=== PATIENT | female | born 1990 | race Asian ===

== ENCOUNTER → 2024-05-01 08:15 | Outpatient (REF) | payer BC, SELFPAY ==
[2024-05-01 09:51] LABS: % Basophils 0.4 % (0-2); % Eosinophils 2.7 % (0-6); % Immature Granulocytes 0.2 % (0-0.5); % Lymphocytes 32.3 % (20.5-51.1); % Monocytes 4.6 % (1.7-9.3); % Neutrophils 59.8 % (42.2-75.2); Absolute Eosinophils 0.2 10^3/uL (0-0.7); Absolute Lymphocytes 2.6 10^3/uL (1.2-3.4); Absolute Monocytes 0.4 10^3/uL (0.1-0.6); Absolute Neutrophils 4.9 10^3/uL (1.4-6.5); Hematocrit 36.9 % (37.0-47.0); Hemoglobin 12.5 g/dL (12.0-16.0); Mean Corp Hgb Conc. 33.9 g/dL (33.0-37.0); Mean Corpuscular Volume 88.7 fL (81.0-99.0); Mean Platelet Volume 10.4 fL (7.4-10.4); Nucleated Red Blood Cells % 0 %; Platelet Count 249 10^3/uL (130-400); Red Blood Cell Count 4.16 10^6/uL (4.20-5.40); Red Cell Dist. Width 13.2 % (11.5-14.5); White Blood Cell Count 8.2 10^3/uL (4.8-10.8)
[2024-05-01 10:26] LABS: ALT (SGPT) 20 U/L (0-35); AST (SGOT) 20 U/L (14-36); Albumin 4.5 g/dl (3.5-5.0); Alkaline Phosphatase 55 U/L (38-126); Blood Urea Nitrogen 15 mg/dl (7-17); Calcium 9.3 mg/dl (8.4-10.2); Carbon Dioxide 25 mmol/L (22-30); Chloride 108 mmol/L (98-107); Glucose 97 mg/dl (70-99); LDH 138 U/L (120-246); Potassium 4.3 mmol/L (3.5-5.1); Sodium 139 mmol/L (135-145); Total Bilirubin 0.4 mg/dl (0.2-1.3); Total Protein 7.3 g/dl (6.3-8.2); eGFR > 60.00
== END ==
LOC: REG 08:15
PROVIDERS: ATTENDING PHYSICIAN Nurse Practitioner Family
DX: C92.41 Acute promyelocytic leukemia, in remission (principal)
CPT/HCPCS: 36415; 80053; 83615; 83735; 84100; 84550; 85025

== ENCOUNTER → 2024-08-14 13:11 | Outpatient (REF) | payer BC, SELFPAY ==
[2024-08-25 07:47] LABS: Chlamydia trachomatis,ThinPrep Negative (Negative); Neisseria gonorrhoeae,ThinPrep Negative (Negative); Specimen Source Cervical
== END ==
LOC: CPAP 13:11
PROVIDERS: ATTENDING PHYSICIAN Nurse Practitioner Family
DX: Z11.51 Encounter for screening for human papillomavirus (HPV) (principal); Z11.3 Encounter for screening for infections with a predominantly sexual mode of transmission; Z32.01 Encounter for pregnancy test, result positive
CPT/HCPCS: 87491; 87591; 87624; G0123

== ENCOUNTER → 2024-08-20 07:30 | Outpatient (REF) | payer BC, SELFPAY ==
[2024-08-20 08:06] LABS: % Basophils 0.4 % (0-2); % Eosinophils 1.2 % (0-6); % Immature Granulocytes 0.3 % (0-0.5); % Lymphocytes 23.8 % (20.5-51.1); % Monocytes 5.2 % (1.7-9.3); % Neutrophils 69.1 % (42.2-75.2); Absolute Eosinophils 0.1 10^3/uL (0-0.7); Absolute Lymphocytes 2.2 10^3/uL (1.2-3.4); Absolute Monocytes 0.5 10^3/uL (0.1-0.6); Absolute Neutrophils 6.3 10^3/uL (1.4-6.5); Hematocrit 37.4 % (37.0-47.0); Hemoglobin 12.8 g/dL (12.0-16.0); Mean Corp Hgb Conc. 34.2 g/dL (33.0-37.0); Mean Corpuscular Volume 90.6 fL (81.0-99.0); Mean Platelet Volume 10.4 fL (7.4-10.4); Nucleated Red Blood Cells % 0 %; Platelet Count 247 10^3/uL (130-400); Red Blood Cell Count 4.13 10^6/uL (4.20-5.40); Red Cell Dist. Width 12.8 % (11.5-14.5); White Blood Cell Count 9.2 10^3/uL (4.8-10.8)
[2024-08-20 08:17] LABS: Urine Albumin Trace (Neg - Trace); Urine Bilirubin Negative (Negative); Urine Character Clear (Clear); Urine Color Yellow; Urine Glucose Negative (Negative); Urine Ketone Negative (Negative); Urine Leukocyte Trace (Negative); Urine Nitrite Negative (Negative); Urine Occult Blood Trace (Negative); Urine Urobilinogen Negative (Neg - 1+)
[2024-08-20 08:27] LABS: Urine Mucus Moderate
[2024-08-20 08:28] LABS: Urine Urothelial Cell 0-2 /LPF (FEW)
[2024-08-20 08:30] LABS: Urine Bacteria Few (Negative)
[2024-08-20 09:16] LABS: Glycohemoglobin (HgbA1c) 5.3 % (4.0-5.6)
[2024-08-20 09:33] LABS: Hepatitis B Surface Antigen Negative (Negative)
[2024-08-20 09:41] LABS: HIV Combo Negative (Negative)
[2024-08-20 19:08] LABS: Rubella Negative
[2024-08-21 12:38] LABS: Syphilis/T. pallidum Ab Reflex Negative (Negative)
== END ==
LOC: REG 07:30
PROVIDERS: ATTENDING PHYSICIAN Nurse Practitioner Family
DX: Z32.01 Encounter for pregnancy test, result positive (principal)
CPT/HCPCS: 36415; 80055; 81003; 81015; 83036; 84702; 87389

== ENCOUNTER → 2024-09-03 13:08 | Outpatient (REF) | payer BC, SELFPAY | LOC: REG 13:08 | PROVIDERS: ATTENDING PHYSICIAN Student in an Organized Health Care Education/Training Program; FAMILY PHYSICIAN Nurse Practitioner Family | DX: Z34.90 Encounter for supervision of normal pregnancy, unspecified, unspecified trimester (principal); Z33.1 Pregnant state, incidental | CPT/HCPCS: 36415 ==

== ENCOUNTER → 2024-09-13 10:47 | Outpatient (REF) | payer BC, SELFPAY | LOC: PNTC 10:47 | PROVIDERS: ATTENDING PHYSICIAN Student in an Organized Health Care Education/Training Program | DX: Z87.410 Personal history of cervical dysplasia (principal); Z85.6 Personal history of leukemia; Z36.0 Encounter for antenatal screening for chromosomal anomalies; Z36.82 Encounter for antenatal screening for nuchal translucency | CPT/HCPCS: 76801; 76813 ==

== ENCOUNTER → 2024-10-06 10:47 | Outpatient (REF) | payer BC, SELFPAY ==
[2024-10-06 11:50] LABS: % Basophils 0.4 % (0-2); % Immature Granulocytes 0.3 % (0-0.5); % Lymphocytes 26.5 % (20.5-51.1); % Monocytes 4.4 % (1.7-9.3); % Neutrophils 67.4 % (42.2-75.2); Absolute Eosinophils 0.1 10^3/uL (0-0.7); Absolute Lymphocytes 2.7 10^3/uL (1.2-3.4); Absolute Monocytes 0.4 10^3/uL (0.1-0.6); Absolute Neutrophils 6.8 10^3/uL (1.4-6.5); Hematocrit 34.9 % (37.0-47.0); Hemoglobin 11.8 g/dL (12.0-16.0); Mean Corp Hgb Conc. 33.8 g/dL (33.0-37.0); Mean Corpuscular Hgb 30.5 pg (27.0-31.0); Mean Corpuscular Volume 90.2 fL (81.0-99.0); Mean Platelet Volume 10.6 fL (7.4-10.4); Nucleated Red Blood Cells % 0 %; Platelet Count 238 10^3/uL (130-400); Red Blood Cell Count 3.87 10^6/uL (4.20-5.40); Red Cell Dist. Width 13.2 % (11.5-14.5)
[2024-10-06 12:14] LABS: ALT (SGPT) 12 U/L (0-35); AST (SGOT) 17 U/L (14-36); Albumin 4.1 g/dl (3.5-5.0); Alkaline Phosphatase 51 U/L (38-126); Blood Urea Nitrogen 8 mg/dl (7-17); Calcium 9.4 mg/dl (8.4-10.2); Carbon Dioxide 22 mmol/L (22-30); Chloride 104 mmol/L (98-107); Glucose 84 mg/dl (70-99); HDL Cholesterol 103 mg/dl; LDL Cholesterol, Calculated 44 mg/dl; Magnesium 1.9 mg/dl (1.6-2.3); Phosphorus 4.4 mg/dl (2.5-4.5); Potassium 4.5 mmol/L (3.5-5.1); Sodium 135 mmol/L (135-145); Total Bilirubin 0.4 mg/dl (0.2-1.3); Total Cholesterol 187 mg/dl (50-199); Triglyceride 200 mg/dl (10-149); Very Low Density Lipoprotein 40 mg/dl (0-30); eGFR > 60.00
[2024-10-06 13:05] LABS: LDH 134 U/L (120-246)
== END ==
LOC: REG 10:47
PROVIDERS: ATTENDING PHYSICIAN Nurse Practitioner Family; FAMILY PHYSICIAN Physician Assistant Medical; REFERRING PHYSICIAN Obstetrics & Gynecology
DX: Z13.0 Encounter for screening for diseases of the blood and blood-forming organs and certain disorders involving the immune mechanism (principal); C92.41 Acute promyelocytic leukemia, in remission; G62.0 Drug-induced polyneuropathy
CPT/HCPCS: 36415; 80053; 80061; 83615; 83735; 84100; 84550; 85025

== ENCOUNTER → 2024-11-05 11:01 | Outpatient (REF) | payer BC, SELFPAY | LOC: PNTC 11:01 | PROVIDERS: ATTENDING PHYSICIAN Student in an Organized Health Care Education/Training Program | DX: Z85.6 Personal history of leukemia (principal); Z87.410 Personal history of cervical dysplasia | CPT/HCPCS: 76811; 76817 ==

== ENCOUNTER → 2024-11-09 11:25 | Outpatient (REF) | payer BC, SELFPAY ==
[2024-11-09 12:24] LABS: 24 Hour Urine Total Volume 2050 ml
[2024-11-09 13:04] LABS: % Basophils 0.2 % (0-2); % Eosinophils 1.2 % (0-6); % Immature Granulocytes 0.6 % (0-0.5); % Lymphocytes 23.6 % (20.5-51.1); % Monocytes 4.4 % (1.7-9.3); Absolute Eosinophils 0.1 10^3/uL (0-0.7); Absolute Immature Granulocytes 0.1 10^3/uL (0-0.05); Absolute Lymphocytes 2.5 10^3/uL (1.2-3.4); Absolute Monocytes 0.5 10^3/uL (0.1-0.6); Absolute Neutrophils 7.4 10^3/uL (1.4-6.5); Hematocrit 34.9 % (37.0-47.0); Hemoglobin 11.7 g/dL (12.0-16.0); Mean Corp Hgb Conc. 33.5 g/dL (33.0-37.0); Mean Corpuscular Volume 92.6 fL (81.0-99.0); Mean Platelet Volume 10.5 fL (7.4-10.4); Nucleated Red Blood Cells % 0 %; Platelet Count 249 10^3/uL (130-400); Red Blood Cell Count 3.77 10^6/uL (4.20-5.40); Red Cell Dist. Width 13.7 % (11.5-14.5); White Blood Cell Count 10.5 10^3/uL (4.8-10.8)
[2024-11-09 13:43] LABS: Urine Albumin Negative (Neg - Trace); Urine Bilirubin Negative (Negative); Urine Character Clear (Clear); Urine Color Yellow; Urine Glucose Negative (Negative); Urine Ketone Negative (Negative); Urine Leukocyte 1+ (Negative); Urine Nitrite Negative (Negative); Urine Occult Blood 1+ (Negative); Urine Urobilinogen Negative (Neg - 1+)
[2024-11-09 14:01] LABS: Urine Squamous Cell 0-2 /LPF (Few)
[2024-11-09 14:02] LABS: Urine Bacteria Few (Negative); Urine Red Blood Cell 0-2 /HPF (0-2)
[2024-11-09 14:17] LABS: ALT (SGPT) 12 U/L (0-35); AST (SGOT) 16 U/L (14-36); Albumin 3.7 g/dl (3.5-5.0); Alkaline Phosphatase 53 U/L (38-126); Blood Urea Nitrogen 11 mg/dl (7-17); Calcium 8.9 mg/dl (8.4-10.2); Carbon Dioxide 21 mmol/L (22-30); Chloride 105 mmol/L (98-107); Glucose 100 mg/dl (70-99); Sodium 134 mmol/L (135-145); Total Bilirubin 0.3 mg/dl (0.2-1.3); Total Protein 6.6 g/dl (6.3-8.2); Uric Acid 4.7 mg/dl (2.5-6.2); eGFR > 60.00
[2024-11-09 14:22] LABS: 24 Hour Urine Creatinine 1.695 gm/day (0.8-1.8); 24 Hour Urine Protein 143.5 mg/day (42-225); Urine Protein 7 mg/dl (0-12)
== END ==
LOC: REG 11:25
PROVIDERS: ATTENDING PHYSICIAN Student in an Organized Health Care Education/Training Program; OTHER PHYSICIAN Obstetrics & Gynecology
DX: Z34.02 Encounter for supervision of normal first pregnancy, second trimester (principal); Z34.91 Encounter for supervision of normal pregnancy, unspecified, first trimester
CPT/HCPCS: 36415; 80053; 81003; 81015; 81050; 82105; 82570; 84156; 84550; 85025

== ENCOUNTER → 2024-12-11 10:33 | Outpatient (REF) | payer BC, SELFPAY ==
[2024-12-11 12:08] LABS: % Basophils 0.1 % (0-2); % Eosinophils 0.7 % (0-6); % Immature Granulocytes 0.5 % (0-0.5); % Lymphocytes 21.1 % (20.5-51.1); % Monocytes 4.5 % (1.7-9.3); % Neutrophils 73.1 % (42.2-75.2); Absolute Eosinophils 0.1 10^3/uL (0-0.7); Absolute Immature Granulocytes 0.1 10^3/uL (0-0.05); Absolute Lymphocytes 1.9 10^3/uL (1.2-3.4); Absolute Monocytes 0.4 10^3/uL (0.1-0.6); Absolute Neutrophils 6.7 10^3/uL (1.4-6.5); Hemoglobin 11.3 g/dL (12.0-16.0); Mean Corp Hgb Conc. 33.2 g/dL (33.0-37.0); Mean Corpuscular Hgb 31.2 pg (27.0-31.0); Mean Corpuscular Volume 93.9 fL (81.0-99.0); Mean Platelet Volume 10.7 fL (7.4-10.4); Nucleated Red Blood Cells % 0 %; Platelet Count 204 10^3/uL (130-400); Red Blood Cell Count 3.62 10^6/uL (4.20-5.40); White Blood Cell Count 9.2 10^3/uL (4.8-10.8)
[2024-12-11 12:41] LABS: 1 Hour after 50gm 166 mg/dl
[2024-12-12 10:59] LABS: Syphilis/T. pallidum Ab Reflex Negative (Negative)
== END ==
LOC: REG 10:33
PROVIDERS: ATTENDING PHYSICIAN Obstetrics & Gynecology
DX: Z34.02 Encounter for supervision of normal first pregnancy, second trimester (principal)
CPT/HCPCS: 36415; 82950; 85025; 86780

== ENCOUNTER → 2024-12-31 15:30 | Outpatient (REF) | payer BC, SELFPAY ==
[2024-12-31 07:40] LABS: Glucose for Tolerance Test 89 mg/dl
[2024-12-31 09:53] LABS: Glucose for Tolerance Test 204 mg/dl
[2024-12-31 10:48] LABS: Glucose for Tolerance Test 129 mg/dl
[2024-12-31 12:14] LABS: Glucose for Tolerance Test 62 mg/dl
== END ==
LOC: REG 15:30
PROVIDERS: ATTENDING PHYSICIAN Obstetrics & Gynecology
DX: O99.119 Other diseases of the blood and blood-forming organs and certain disorders involving the immune mechanism complicating pregnancy, unspecified trimester (principal); Z34.02 Encounter for supervision of normal first pregnancy, second trimester
CPT/HCPCS: 36415; 82951

== ENCOUNTER → 2025-02-21 15:00 | Outpatient (REF) | payer BC, SELFPAY | LOC: PNTC 15:00 | PROVIDERS: ATTENDING PHYSICIAN Student in an Organized Health Care Education/Training Program | DX: O99.119 Other diseases of the blood and blood-forming organs and certain disorders involving the immune mechanism complicating pregnancy, unspecified trimester (principal) | CPT/HCPCS: 76816 ==

== ENCOUNTER → 2025-02-28 13:55 | Outpatient (REF) | payer BC, SELFPAY | LOC: CLAB 13:55 | PROVIDERS: ATTENDING PHYSICIAN Obstetrics & Gynecology | DX: Z36.85 Encounter for antenatal screening for Streptococcus B (principal); Z34.90 Encounter for supervision of normal pregnancy, unspecified, unspecified trimester | CPT/HCPCS: 87070 ==

== ENCOUNTER 2025-03-28 19:26 | Inpatient (IN) | payer BC, SELFPAY ==
[2025-03-09 09:23] LABS: % Basophils 0.3 % (0-2); % Immature Granulocytes 0.6 % (0-0.5); % Lymphocytes 19.1 % (20.5-51.1); % Monocytes 7.1 % (1.7-9.3); % Neutrophils 71.9 % (42.2-75.2); Absolute Eosinophils 0.1 10^3/uL (0-0.7); Absolute Immature Granulocytes 0.1 10^3/uL (0-0.05); Absolute Lymphocytes 1.9 10^3/uL (1.2-3.4); Absolute Monocytes 0.7 10^3/uL (0.1-0.6); Absolute Neutrophils 7.1 10^3/uL (1.4-6.5); Hemoglobin 12.1 g/dL (12.0-16.0); Mean Corp Hgb Conc. 34.6 g/dL (33.0-37.0); Mean Corpuscular Hgb 32.1 pg (27.0-31.0); Mean Corpuscular Volume 92.8 fL (81.0-99.0); Mean Platelet Volume 11.1 fL (7.4-10.4); Nucleated Red Blood Cells % 0 %; Platelet Count 190 10^3/uL (130-400); Red Blood Cell Count 3.77 10^6/uL (4.20-5.40); Red Cell Dist. Width 13.6 % (11.5-14.5); White Blood Cell Count 9.9 10^3/uL (4.8-10.8)
[2025-03-09 09:48] LABS: ALT (SGPT) 12 U/L (0-35); AST (SGOT) 15 U/L (14-36); Albumin 3.7 g/dl (3.5-5.0); Alkaline Phosphatase 97 U/L (38-126); Blood Urea Nitrogen 9 mg/dl (7-17); Calcium 9.6 mg/dl (8.4-10.2); Carbon Dioxide 20 mmol/L (22-30); Chloride 112 mmol/L (98-107); Glucose 93 mg/dl (70-99); LDH 150 U/L (120-246); Magnesium 1.7 mg/dl (1.6-2.3); Phosphorus 4.5 mg/dl (2.5-4.5); Potassium 4.2 mmol/L (3.5-5.1); Sodium 137 mmol/L (135-145); Total Bilirubin 0.5 mg/dl (0.2-1.3); Total Protein 6.4 g/dl (6.3-8.2); Uric Acid 5.2 mg/dl (2.5-6.2); eGFR > 60.00
[2025-03-28 20:08] VITALS: BP 139/90; BMI 36.9
[2025-03-28 21:08] LABS: % Basophils 0.2 % (0-2); % Immature Granulocytes 0.6 % (0-0.5); % Lymphocytes 23.9 % (20.5-51.1); % Monocytes 6.5 % (1.7-9.3); % Neutrophils 67.8 % (42.2-75.2); Absolute Eosinophils 0.1 10^3/uL (0-0.7); Absolute Immature Granulocytes 0.1 10^3/uL (0-0.05); Absolute Lymphocytes 2.4 10^3/uL (1.2-3.4); Absolute Monocytes 0.7 10^3/uL (0.1-0.6); Absolute Neutrophils 6.9 10^3/uL (1.4-6.5); Hematocrit 34.7 % (37.0-47.0); Hemoglobin 11.9 g/dL (12.0-16.0); Mean Corp Hgb Conc. 34.3 g/dL (33.0-37.0); Mean Corpuscular Hgb 32.2 pg (27.0-31.0); Mean Platelet Volume 11.8 fL (7.4-10.4); Nucleated Red Blood Cells % 0 %; Platelet Count 186 10^3/uL (130-400); Red Blood Cell Count 3.69 10^6/uL (4.20-5.40); Red Cell Dist. Width 13.7 % (11.5-14.5); White Blood Cell Count 10.2 10^3/uL (4.8-10.8)
[2025-03-28] MEDS: CYTOTEC 50 MICROGRAM VAG (22:16)
[2025-03-28 23:00] LABS: ALT (SGPT) 12 U/L (0-35); AST (SGOT) 19 U/L (14-36); Albumin 3.6 g/dl (3.5-5.0); Alkaline Phosphatase 105 U/L (38-126); Blood Urea Nitrogen 11 mg/dl (7-17); Calcium 9.3 mg/dl (8.4-10.2); Carbon Dioxide 19 mmol/L (22-30); Chloride 110 mmol/L (98-107); Estimated Creatinine Clearance > 125 ml/min; Glucose 135 mg/dl (70-99); Potassium 4.2 mmol/L (3.5-5.1); Sodium 137 mmol/L (135-145); Total Bilirubin 0.5 mg/dl (0.2-1.3); Total Protein 6.4 g/dl (6.3-8.2); eGFR > 60.00
[2025-03-28 23:02] LABS: Protein/creatinine Ratio 0.1; Urine Protein 9 mg/dl
[2025-03-28] MEDS: CYTOTEC PO (23:42)
[2025-03-29] MEDS: TUMS CHEWABLE TABLET 400 MG PO (01:02)
[2025-03-29] MEDS: CYTOTEC 50 MICROGRAM PO ×2 (02:12→06:03)
[2025-03-29] MEDS: CYTOTEC PO ×3 (10:00→17:43)
[2025-03-29] MEDS: FLUSH (NSS) 1 FLUSH IV (10:10)
[2025-03-29] MEDS: PITOCIN 30 UNITS/NSS 500 ML IV (10:12)
[2025-03-29] MEDS: LR 1000 IV ×3 (11:17→23:58)
[2025-03-29 12:09] LABS: Hepatitis C Antibody Negative (Negative)
[2025-03-29] MEDS: SUBLIMAZE 100 MCG EPIDURAL (17:52)
[2025-03-29] MEDS: FENTANYL/BUPIVACAINE 100 EPIDURAL (17:53)
[2025-03-30] MEDS: ZOFRAN 4 MG IV (00:23)
[2025-03-30] MEDS: FENTANYL/BUPIVACAINE 100 EPIDURAL (01:48)
[2025-03-30] MEDS: XYLOCAINE-MPF 1% VIAL 30 ML INFIL (03:42)
[2025-03-30] MEDS: TYLENOL 650 MG PO ×3 (06:49→20:29)
[2025-03-30] MEDS: MOTRIN 600 MG PO ×3 (06:49→20:29)
[2025-03-30] MEDS: SENOKOT-S 1 TABLET PO (16:40)
[2025-03-30] MEDS: PRENATAL PLUS 1 TABLET PO (16:41)
[2025-03-31] MEDS: TYLENOL 650 MG PO ×4 (02:54→20:37)
[2025-03-31] MEDS: MOTRIN 600 MG PO ×4 (02:54→20:37)
[2025-03-31 05:35] LABS: Hematocrit 28.8 % (37.0-47.0); Hemoglobin 9.7 g/dL (12.0-16.0)
[2025-03-31] MEDS: FEOSOL 325 MG PO (08:44)
[2025-03-31] MEDS: PRENATAL PLUS 1 TABLET PO (08:44)
[2025-03-31] MEDS: SENOKOT-S 1 TABLET PO (08:45)
[2025-04-01] MEDS: MOTRIN 600 MG PO (05:35)
[2025-04-01] MEDS: TYLENOL 650 MG PO (05:35)
[2025-04-01] MEDS: SENOKOT-S 1 TABLET PO (08:30)
[2025-04-01] MEDS: PRENATAL PLUS 1 TABLET PO (08:30)
[2025-04-01] MEDS: FEOSOL 325 MG PO (08:30)
[2025-04-01] MEDS: M-M-R II 0.5 ML SC (08:31)
[2025-04-02 14:06] LABS: Syphilis/T. pallidum Ab Reflex Negative (Negative)
== END 2025-04-01 11:26 | disposition home or self-care (01) | DRG 806 ==
LOC: LDRP 19:26
PROVIDERS: Nurse Practitioner Family; Obstetrics & Gynecology; Student in an Organized Health Care Education/Training Program; ADMITTING PHYSICIAN Obstetrics & Gynecology
PROC: 3E0P7VZ Introduction of Hormone into Female Reproductive, Via Natural or Artificial Opening (ICD-10-PCS; 2025-03-28)
PROC: 0KQM0ZZ Repair Perineum Muscle, Open Approach (ICD-10-PCS; 2025-03-30)
PROC: 10E0XZZ Delivery of Products of Conception, External Approach (ICD-10-PCS; 2025-03-30)
PROC: 3E0134Z Introduction of Serum, Toxoid and Vaccine into Subcutaneous Tissue, Percutaneous Approach (ICD-10-PCS; 2025-03-31)
DX: O48.0 Post-term pregnancy (principal); C95.91 Leukemia, unspecified, in remission; Z37.0 Single live birth; O70.1 Second degree perineal laceration during delivery; Z3A.40 40 weeks gestation of pregnancy; Z90.49 Acquired absence of other specified parts of digestive tract; Z23 Encounter for immunization; Z82.49 Family history of ischemic heart disease and other diseases of the circulatory system
CPT/HCPCS: 36415; 80053; 82570; 83615; 83735; 84100; 84156; 84550; 85014; 85018; 85025; 86780; 86803; 86850; 86900; 86901